=== PATIENT | male | born 1975 | race Caucasian/White ===

== ENCOUNTER 2016-12-28 09:42 | Observation (INO) | payer OTHER ==
[~2016-12-28] VITALS: Ht 193 cm; Wt 108.9 kg
[~2016-12-28 09:42] MED LIST: ADIPEX-P37.5 MG PO; ADVAIR 250/501 DISK IH; ASPIR-LOW81 MG PO; BUTALBITAL COM1 EAC1 PO; DESYREL 150 MG150 MG PO; ESSENTIAL ONE1 EACH PO; FLEXERIL10 MG PO; GABAPENTIN300 MG PO; IBUPROFEN800 MG PO; IMITREX100 MG PO; INNOPRAN XL80 MG PO; LEVAQUIN750 MG PO; LEXAPRO20 MG PO; METAXALONE800 MG PO; NORTRIPTYLINE H75 MG PO; OXYCODONE HCL5 MG PO; PERCOCET 5/31 TABLET PO; PRAVASTATIN SOD20 MG PO; RELPAX40 MG PO; RISPERDAL M-TAB2 MG PO; SKELAXIN800 MG PO; TIZANIDINE HCL4 MG PO; TOPAMAX25 MG PO; VALIUM10 MG PO; VOLTAREN25 MG PO; ZANAFLEX4 MG PO; ZANTAC150 MG PO
[2016-12-28 10:56] LABS: HEMATOCRIT 44.4 % (38.0-50.0); MCHC 32.4 G/DL (30.0-36.0); MCV 83.1 FL (86-99); MEAN PLAT.VOLUME 9.9 uM^3 (9.0-12.4); PLATELET COUNT 330 K/uL (156-360); RBC DIS.WIDTH-CV 12.5 % (11.8-14.6); RBC DIS.WIDTH-SD 37.7 % (39-53); RED BLOOD COUNT 5.34 M/uL (4.00-5.50); WHITE BLOOD COUNT 6.1 K/uL (4.1-10.2)
[2016-12-28 11:04] LABS: CHLORIDE 107 mEq/L (99-109); POTASSIUM 4.6 mEq/L (3.7-5.4); SODIUM 138 mEq/L (136-147)
[2016-12-28 11:05] LABS: GLUCOSE 92 mg/dL (70-99)
[2016-12-28 11:07] LABS: ANION GAP 5 MEQ/L (2-14)
[2016-12-28 11:09] LABS: GFR ESTIMATE (CALCULATED) > 59 mL/min/
[2016-12-28 11:10] LABS: UREA NITROGEN (BUN) 8 mg/dL (9-23)
[2016-12-28 11:15] LABS: TROP-I INTERPRETATION NEGATIVE; TROPONIN-I < 0.01 ng/mL (0.0-0.30)
[2016-12-28 13:17] LABS: TROP-I INTERPRETATION NEGATIVE; TROPONIN-I < 0.01 ng/mL (0.0-0.30)
[2016-12-28 14:14] LABS: D-DIMER ELISA < 150.00 ng/mLDDU (<230)
[2016-12-28] MEDS ORDERED: FLONASE16 G1 BOTH NARES (15:22)
[2016-12-28 16:22] VITALS: BP 91/55
[2016-12-28 18:20] LABS: TROP-I INTERPRETATION NEGATIVE; TROPONIN-I 0.01 ng/mL (0.0-0.30)
[2016-12-28 19:10] VITALS: BP 135/78
[2016-12-29 00:28] VITALS: BP 117/53
[2016-12-29 01:48] LABS: TROP-I INTERPRETATION NEGATIVE; TROPONIN-I < 0.01 ng/mL (0.0-0.30)
[2016-12-29 04:24] VITALS: BP 138/71
[2016-12-29 05:57] LABS: HDL CHOLESTEROL 29 MG/DL (Desirable>=40); LDL CHOLESTEROL 73 mg/dL (Desirable<100); NON-HDL CHOLESTEROL 92 mg/dL (Desirable<160); TOTAL CHOLESTEROL 121 mg/dL (Desirable<200); TRIGLYCERIDES 93 MG/DL (Normal: <150)
[2016-12-29 09:27] VITALS: BP 125/78
== END 2016-12-29 09:55 | disposition home or self-care (01) ==
LOC: EME 09:42 → EDOF 14:50 → ENRESERV 14:53 → 5WEST 15:36
PROVIDERS: Emergency Medicine; Internal Medicine
DX: R07.9 Chest pain, unspecified (principal); G50.0 Trigeminal neuralgia; K58.0 Irritable bowel syndrome with diarrhea; Z86.79 Personal history of other diseases of the circulatory system; F43.10 Post-traumatic stress disorder, unspecified; I10 Essential (primary) hypertension; F32.9 Major depressive disorder, single episode, unspecified; G43.909 Migraine, unspecified, not intractable, without status migrainosus; Z87.442 Personal history of urinary calculi; Z86.73 Personal history of transient ischemic attack (TIA), and cerebral infarction without residual deficits; R73.03 Prediabetes; K21.9 Gastro-esophageal reflux disease without esophagitis; Z88.0 Allergy status to penicillin; Z88.2 Allergy status to sulfonamides; Z82.49 Family history of ischemic heart disease and other diseases of the circulatory system
CPT/HCPCS: 71020; 80048; 80061; 84484; 85027; 85379; 93005; 99281; 99285; G0378; J1200; J1885; J2270; J7030